=== PATIENT | female | born 1995 | race Caucasian/White ===

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

== ENCOUNTER → 2017-01-02 | Outpatient (REF) ==
[2017-01-02 13:08] LABS: PH 7 (5-8); SQUAMOUS EPITHELIAL 0-2 /hpf; URINE APPEARANCE Cloudy; URINE BACTERIA Moderate /hpf; URINE BILIRUBIN Negative (NEGATIVE); URINE BLOOD Negative (NEGATIVE); URINE COLOR Yellow; URINE GLUCOSE Negative (NEGATIVE); URINE KETONE Negative (NEGATIVE); URINE UROBILINOGEN Negative (NEGATIVE); URINE WBC >50 /hpf
== END ==
LOC: ZMSC 12:53
PROVIDERS: Internal Medicine Infectious Disease
DX: Z01.89 Encounter for other specified special examinations (principal)

== ENCOUNTER 2017-08-10 08:45 | Emergency (ER) | payer OTHER ==
[~2017-08-10] VITALS: Ht 165.1 cm; Wt 56.8 kg
[2017-08-10 08:51] VITALS: TEMP 98.6
[2017-08-10] MEDS ORDERED: ZITHROMAX Z PA250 MG PO (09:34)
[2017-08-10 09:44] VITALS: BP 138/82; PULSE 78
== END 2017-08-10 09:45 | disposition home or self-care (01) ==
LOC: COL.ER 08:45
DX: H66.91 Otitis media, unspecified, right ear (principal)

== ENCOUNTER 2019-03-30 11:35 | Inpatient (IN) | payer OTHER ==
[~2019-03-30] VITALS: Ht 167.6 cm; Wt 82.3 kg
[~2019-03-30 11:35] MED LIST: ZITHROMAX Z PA250 MG PO
--- NOTE | 2019-04-07 19:15 | NUR ---
Pt arrives to unit ambulatory for scheduled induction of labor. at 37 weeks and 2 days. Pt reports feeling good movement, occasional contractions, and denies LOF. Pt oriented to room, call light within reach, bed in low and locked position. EFM and toco explained and applied. Plan of care reviewed with patient and family member. All questions answered. Admission assessment started.
[2019-04-07 19:30] VITALS: BP 139/93; PULSE 102; TEMP 98.4
[2019-04-07 19:50] LABS: BASO % 0.4 % (0.0-2.0); EOS % 0.4 % (0-4.0); GRAN # 7.4 (1.4-6.5); GRAN % 71.3 % (42.2-75.2); HEMOGLOBIN 11.6 g/dl (12.5-16.0); LYMPH # 2.3 (1.2-3.4); LYMPH % 22.2 % (20.0-51.0); MEAN CELL VOLUME 88 fl (80.0-100.0); MEAN CORPUSCULAR HEMOGLOBIN 30 pg (27.0-31.0); MEAN CORPUSCULAR HGB CONC 34 g/dl (33.0-37.0); MEAN PLATELET VOLUME 11.9 fl (7.4-10.4); MONO # 0.5 (0.1-0.6); MONO % 5.2 % (1.7-9.3); PLATELET COUNT 279 K/mm3 (130-400)
[2019-04-07 20:00] VITALS: BP 147/91; PULSE 80
[2019-04-07 20:07] LABS: HEMATOCRIT 34.2 % (37.0-47.0)
[2019-04-07 20:30] VITALS: BP 134/84; PULSE 71
[2019-04-07 20:45] VITALS: BP 133/90; PULSE 81
[2019-04-07 21:00] VITALS: BP 150/80; PULSE 64
[2019-04-07 22:13] LABS: ALBUMIN 3.2 gm/dL (3.5-5.0); BILIRUBIN,TOTAL 0.3 mg/dL (0.0-1.0); CALCIUM 8.7 mg/dL (8.4-10.2); CREATININE, serum 0.64 (0.52-1.25); POTASSIUM 4.3 mmol/L (3.4-5.0)
[2019-04-07] MEDS ORDERED: PRENATAL MVI ×2 (22:43)
[2019-04-08] VITALS (51 sets, daily range): BP systolic 113–166; BP diastolic 62–102; PULSE 54–96; TEMP 97.6–98.5
--- NOTE | 2019-04-08 00:30 | NUR ---
0030 CYTOTEC 25MG PO AND VISTARIL 50MG PO GIVEN. EFM ON. STATES IV SITE IS REALLY HURTING. NOTED IV FLUIDS NOT INFUSING AND UNABLE TO FLUSH.
--- NOTE | 2019-04-08 00:50 | NUR ---
0050 IV SITE INFILTRATED AND DCD. IV RESTARTED IN LEFT HAND
--- NOTE | 2019-04-08 06:50 | NUR ---
Report from Orestes FARRAR to assume care of patient at this time.
--- NOTE | 2019-04-08 07:10 | NUR ---
to bedside to discuss plan of care with patient. SVE /-3. Patient up to bathroom, voids without difficulty. Patient denies pain or needs at this time. Returns to bed in left lateral position. Encouraged to rest. Mother at bedside. Call light within reach.
--- NOTE | 2019-04-08 08:40 | NUR ---
to bedside for AROM. SVE /-2 per provider. AROM at 0840, moderate amount of clear fluid noted. Plan of care discussed with patient. Epidural discussed, questions answered. Mother supportive at bedside. Call light within reach.
--- NOTE | 2019-04-08 09:30 | NUR ---
0905: Patient breathing through contractions, blood pressures elevated. Patient requesting epidural. 0907: Foreign WONG notified of patient request. 0910: Patient sitting up for epidural placement. 0915: Foreign WONG at bedside. 0920: Lidocaine. Single Shot by Foreign WONG, no adverse reactions noted. 0921: Epidural Catheter. 0925: Patient repositioned to left tilt. Plan of care discussed. Questions answered. Call light within reach.
--- NOTE | 2019-04-08 10:00 | NUR ---
Patient comfortable with epidural. Cruz catheter placed. SVE /0. Patient repositioned to right lateral with peanut ball in place. Encouraged to rest. Mother remains at bedside. Call light within reach.
--- NOTE | 2019-04-08 11:05 | NUR ---
Patient sleeping upon RN entry to room. SVE /0. Repositioned to left lateral with peanut ball in place. Denies pain or needs. Encouraged to continue resting. Call light within reach.
--- NOTE | 2019-04-08 11:30 | NUR ---
RN to bedside to reposition patient. Patient reports feeling pain with contractions. SVE 5/90/0. HOB elevated, to left tilt, peanut ball in place. Patient pushes epidural button. Encouraged to notify RN with increased pain, rectal pressure, or urge to push. Friend at bedside. Call light within reach.
--- NOTE | 2019-04-08 12:55 | NUR ---
1225: Patient breathing/moaning through contractions, reports rectal pressure. SVE Complete/+1. 1228: notified, requested at bedside for delivery. 1230: Patient and room prepped for delivery. and Geo RN (nursery nurse) at bedside. Cruz catheter dc'd. 1233: Initial push. 1243: Spontaneous vaginal delivery of viable male infant over first degree laceration assisted by . Infant to abdomen, care assumed by Geo RN at this time. Pitocin off. 1247: Spontaneous vaginal delivery of placenta assisted by . Pitocin infusing at 333ml/hr. Fundus firm at D2, scant lochia. 1250: 1st degree laceration repaired by using 2-[address]-1. 1255: Recovery period started. Fundus firm at D2, scant lochia.
--- NOTE | 2019-04-08 14:55 | NUR ---
Patient unable to lift and hold left leg off of bed. Pericare performed. Epidural catheter removed. Will continue to monitor.
--- NOTE | 2019-04-08 15:40 | NUR ---
Patient up to bathroom with RN assist x2. Patient voids 200ml clear yellow urine, lochia WNL. Pericare performed. Gown changed. Underwear, peripad, and ice pack in place. Patient to nursery via wheelchair to visit infant.
[2019-04-09 01:47] VITALS: BP 134/85; PULSE 67; TEMP 97.8
[2019-04-09 07:58] VITALS: BP 149/91; PULSE 61; TEMP 97.7
--- NOTE | 2019-04-09 09:02 | NUR ---
Initial visit; Mom thanked Superintendent Commissary for offering congratulations and God's blessings for the of her son. Superintendent Commissary thanked Mom for choosing [facility].
--- NOTE | 2019-04-09 15:32 | NUR ---
color drum worker met with patient to assess needs. A male was in the room during the visit. Patient states she has a car seat and will have someone bring it to the hospital as it will be needed for trials and fitting. Patient states she lives with her parents and is currently unemployed. Patient is on her parents insurance and has medicaid. Worker provided information on paternity/ certificate questions. Worker provided written and verbal information on WIC, Healthy Start Visiting program and Parents as Teachers. Worker collaborated with nursing regarding the above information. Patient is tearful. Worker advised that social work would follow up with her on Friday as her baby will remain in the nursery and not be discharged tomorrow.
[2019-04-09 16:08] VITALS: BP 145/68; PULSE 78; TEMP 98.1
[2019-04-09 19:53] VITALS: BP 147/90; PULSE 75; TEMP 98
[2019-04-10 06:50] VITALS: BP 137/75; PULSE 80; TEMP 97.8
[2019-04-10] MEDS ORDERED: PERCOCET 325 MG1 TA2 PO (08:27)
[2019-04-10] MEDS ORDERED: MOTRIN 800800 MG/TAB PO (08:27)
== END 2019-04-10 14:25 | disposition home or self-care (01) | DRG 807 ==
LOC: LDR 04-07 10:04 → OB 04-07 19:07 → EDSTATUS 04-26 10:03 → LDRO 04-26 11:32
PROVIDERS: Obstetrics & Gynecology; ADMIT Student in an Organized Health Care Education/Training Program
PROC: 3E0P7GC Introduction of Other Therapeutic Substance into Female Reproductive, Via Natural or Artificial Opening (ICD-10-PCS; 2019-04-07)
PROC: 10E0XZZ Delivery of Products of Conception, External Approach (ICD-10-PCS; principal; 2019-04-08)
PROC: 10907ZC Drainage of Amniotic Fluid, Therapeutic from Products of Conception, Via Natural or Artificial Opening (ICD-10-PCS; 2019-04-08)
PROC: 0HQ9XZZ Repair Perineum Skin, External Approach (ICD-10-PCS; 2019-04-08)
DX: O36.5930 Maternal care for other known or suspected poor fetal growth, third trimester, not applicable or unspecified (principal); Z37.0 Single live birth; O99.344 Other mental disorders complicating childbirth; F32.9 Major depressive disorder, single episode, unspecified; F41.9 Anxiety disorder, unspecified; O13.3 Gestational [pregnancy-induced] hypertension without significant proteinuria, third trimester; O69.1XX0 Labor and delivery complicated by cord around neck, with compression, not applicable or unspecified; O70.0 First degree perineal laceration during delivery; Z3A.37 37 weeks gestation of pregnancy
CPT/HCPCS: J1200; J2590; J2795; J7120

== ENCOUNTER 2023-06-13 09:42 | Emergency (ER) | payer MEDICAID ==
[~2023-06-13] VITALS: Ht 165.1 cm; Wt 79.5 kg
[~2023-06-13 09:42] MED LIST changes: +CEFTIN 250250 MG/TAB PO; +MOTRIN 800800 MG/TAB PO; +NORCO 325 MG-51 TAB PO; +PERCOCET 325 MG1 TA2 PO; +PRENATAL MVI
[2023-06-13 10:02] VITALS: TEMP 98
[2023-06-13 13:43] VITALS: BP 101/61; PULSE 82
== END 2023-06-13 13:43 | disposition home or self-care (01) ==
LOC: COL.ER 09:42
DX: O99.351 Diseases of the nervous system complicating pregnancy, first trimester (principal); R51.9 Headache, unspecified; Z3A.10 10 weeks gestation of pregnancy; Z86.69 Personal history of other diseases of the nervous system and sense organs; Z91.040 Latex allergy status
CPT/HCPCS: J2765; J7120